=== PATIENT | female | born 1985 | race Caucasian/White ===

== ENCOUNTER → 2018-01-09 19:17 | Outpatient (CLI) | payer SELFPAY | PROVIDERS: Visit Provider Physician Assistant | DX: L03.312 Cellulitis of back [any part except buttock and flank] (principal) | CPT/HCPCS: 87070; 87075; 87077; 87186; 87205 ==

== ENCOUNTER → 2021-07-06 17:45 | Outpatient (CLI) | payer SELFPAY, OTHER ==
--- NOTE | 2021-07-06 17:47 | CT_ITS ---
STUDY: CT ABDOMEN AND PELVIS WITHOUT CONTRAST REASON FOR EXAM: Female, 25 years old. FLANK PAIN RADIATION DOSAGE (If Supplied By Facility): CTDIvol = ( 7.12 ) mGy, DLP = ( 345.10 ) mGycm TECHNIQUE: Transaxial images were obtained from the dome of the diaphragm to the symphysis pubis without oral contrast, and without intravenous contrast. Sagittal and coronal images were reconstructed. Individualized dose optimization techniques were used for this CT. COMPARISON: None. FINDINGS: The visualized lung bases are unremarkable. The visualized portions of the heart are within normal limits. Normal liver. Normal gallbladder and extrahepatic biliary system. Normal spleen. Normal pancreas. Normal bilateral adrenal glands. Normal right kidney. Normal left kidney. Normal visualized stomach. Normal small intestine. Normal colon. The appendix is visualized and appears normal. Normal abdominal aorta. Normal inferior vena cava. Normal retroperitoneum. Normal urinary bladder. Normal abdominal wall. Normal osseous structures. CT/Abdomen/Pelvis without Cont IMPRESSION: Normal unenhanced CT of the abdomen and pelvis. Electronically Signed: Joaquin Hansen MD at 22:09 EDT Tel , Service support ,
== END ==
PROVIDERS: PCP Family Medicine; Visit Provider Family Medicine
DX: R10.9 Unspecified abdominal pain (principal)
CPT/HCPCS: 74176

== ENCOUNTER 2021-12-21 16:33 | Outpatient (CLI) | payer SELFPAY, OTHER ==
--- NOTE | 2021-12-21 16:37 | US_ITS ---
STUDY: ULTRASOUND OF THE FEMALE PELVIS - COMPLETE REASON FOR EXAM: Female, 26 years old. PELVIC SOHEILA LMP: 12/03/2021. TECHNIQUE: Transabdominal TECHNICAL QUALITY: Adequate. COMPARISON: None. FINDINGS: The uterus is anteverted and is tilted to the right side of the pelvis. The uterus measures 8.8 cm x 5.2 cm x 3.2 cm. Normal uterine cervix. The endometrium measures 9.4 mm in thickness, and is heterogeneous (striated). There is no demonstrated endometrial mass. There is no demonstrated myometrial mass. I.U.D. - The patient does not have an I.U.D. The right ovary is visualized. The right ovary measures 4 cm x 3.9 cm x 2.4 cm. There is a 2.5 cm x 2.3 cm x 1.4 cm right ovarian cyst. There is no visualized right adnexal mass or complex lesion. There is normal arterial and normal venous vascularity. The left ovary is visualized. The left ovary measures 3.1 cm x 2.6 cm x 1.8 cm. There is no left ovarian cyst or ovarian mass. There is no visualized left adnexal mass or complex lesion. There is normal arterial and normal venous vascularity. There is no fluid in the cul-de-sac. The pre void volume of the bladder was 1998 ml. US/Pelvic (Non ) IMPRESSION: 2.5 cm x 2.3 cm x 1.4 cm right ovarian cyst. Electronically Signed: Jhon Valenzuela MD at 10:21 EST ,
== END 2021-12-21 23:59 | disposition short-term general hospital (02) ==
LOC: US 16:36
PROVIDERS: PCP Family Medicine; Referring Provider Nurse Practitioner Women's Health; Visit Provider Nurse Practitioner Women's Health
DX: R10.2 Pelvic and perineal pain (principal)
CPT/HCPCS: 76856

== ENCOUNTER → 2023-12-13 | Outpatient (CLI) | payer SELFPAY, OTHER ==
--- NOTE | 2023-12-13 07:47 | US_ITS ---
INDICATION: pelvic pain EXAMINATION: Ultrasound US Pelvis Non-OB Complete TECHNIQUE: Transabdominal pelvic ultrasound was performed. Grayscale, spectral waveform, and color flow Doppler evaluation of the adnexa. COMPARISON: December 21, 2021 FINDINGS: UTERUS: The uterus measures 7.6 x 3.4 x 4.8 cm. There is no uterine mass. The endometrial stripe measures 4.5 mm in AP diameter which is within normal limits. RIGHT OVARY: 2.4 x 1.5 x 2.5 cm. Non-enlarged, normal echogenicity. There is normal arterial inflow and venous outflow present in the right ovary. LEFT OVARY: 2.1 x 3.3 x 4.5 cm. Non-enlarged, normal echogenicity. There is normal arterial inflow and venous outflow present in the left ovary. FREE FLUID: None. The urinary bladder volume measures 386 cc and is within normal limits. US/Pelvic (Non ) IMPRESSION: Within normal limits pelvic ultrasound. Electronically Signed: Lanette Smith MD at 8:27 EST ,
== END | disposition home or self-care (01) ==
LOC: OPUS 07:46
PROVIDERS: PCP Family Medicine; Referring Provider Nurse Practitioner Women's Health; Visit Provider Nurse Practitioner Women's Health
DX: R10.2 Pelvic and perineal pain (principal)
CPT/HCPCS: 76856